=== PATIENT | female | born 1980 | race Caucasian/White ===

== ENCOUNTER 2022-01-02 14:26 | Emergency (ER) | payer OTHER, SELFPAY ==
[2022-01-02 14:36] VITALS: BP 119/83; PULSE 80; RESP 16; TEMP 36.7; O2SAT 99
--- NOTE | 2022-01-02 15:16 | ED.URI ---
HPI - URI/Sore Throat General Chief Complaint: Upper Respiratory Infection Stated Complaint: sore throat, cough, congestion, ear pain Time Seen by Provider: 01/02/22 15:16 Source: patient and RN notes reviewed Mode of arrival: ambulatory Limitations: no limitations History of Present Illness HPI Narrative: 41 y/o female presented for c/o cough, congestion, ear pain for 3 days. Cough is nonproductive. Denies sob, wheezing, n/v/d/f/c. Denies sick contacts. Currently on Chemotherapy for breast cancer, last treatment 1.5 weeks ago. Smokes 1PPD. Taking Mucinex for symptoms. MD elicited complaint: cough Related Data Home Medications Medication Instructions Recorded Confirmed Allergy (diphenhydramine) 01/02/22 Compazine 01/02/22 Decadron 01/02/22 Zofran 01/02/22 amlodipine 01/02/22 bupropion HCl 01/02/22 levothyroxine 01/02/22 omeprazole 01/02/22 Allergies Allergy/AdvReac Type Severity Reaction Status Date / Time ciprofloxacin [From Cipro] Allergy Rash Verified 01/02/22 14:33 Review of Systems Review of Systems: CONSTITUTIONAL: denies malaise, chills, sweats, fever EYES: Denies visual changes, redness, or discharge ENT: Reports rhinorrhea, congestion CARDIOVASCULAR: Denies chest pain, palpitations, edema RESPIRATORY: Reports cough, Denies dyspnea GASTROINTESTINAL: Denies abdominal pain, nausea, vomiting, diarrhea SKIN: Denies rash or itching MUSCULOSKELETAL: denies myalgia NEUROLOGIC: Denies headache Exam Narrative: GENERAL: Ill-appearing, nontoxic EYES: PERRLA, conjunctivae clear ENT: Mucous membranes moist. TMs pearly magana with normal light reflex bilaterally; no tragal tenderness. Hoarse voice, oropharynx erythematous without lesions or exudate, no drooling, no trismus, uvula midline. No tripod positioning, muffled voice, soft palate or pharyngeal wall bulging NECK: Supple. No lymphadenopathy CHEST: Clear to auscultation, breath sounds equal. HEART: Regular rate and rhythm. No murmur heard. SKIN: Warm, dry, no rash. NEURO: Alert and oriented x3. PSYCH: Normal mood and affect Course Course Emergency Course: Patient is aware of diagnosis, understands and agrees to treatment plan. Anticipatory guidance given. Patient agrees to follow-up as directed and is aware of reasons to seek care at the emergency department. Portions of this record may have been created with voice recognition software Level of Care: Express Care Visit Vital Signs Vital signs: Vital Signs Temperature 98.1 F 01/02/22 14:36 Pulse Rate 80 01/02/22 14:36 Respiratory Rate 16 01/02/22 14:36 Blood Pressure 119/83 01/02/22 14:36 Pulse Oximetry 99 01/02/22 14:36 Oxygen Delivery Room Air 01/02/22 14:36 Temperature 98.1 F 01/02/22 14:36 Pulse Rate 80 01/02/22 14:36 Respiratory Rate 16 01/02/22 14:36 Blood Pressure 119/83 01/02/22 14:36 Pulse Oximetry 99 01/02/22 14:36 Oxygen Delivery Room Air 01/02/22 14:36 reviewed MDM - URI/Sore Throat MDM Narrative Medical decision making narrative: Advised supportive measures for URI and signs/symptoms to go to the ER. Pt is appropriate for outpt treatment and f/u. Differential Diagnosis Differential diagnosis: Likely upper respiratory infection, sinusitis and viral infection Discharge Plan Discharge Clinical Impression: Upper respiratory infection Qualifiers: URI type: unspecified URI Qualified Code(s): J06.9 - Acute upper respiratory infection, unspecified Patient Disposition: Home, Self-Care Condition: Stable Instructions: Allergic Rhinitis (ED) Additional Instructions: Recommend Flonase spray and Zyrtec (or Claritin/Sherice) over the counter Cough syrup may cause drowsiness; avoid driving or take it at night time. Tylenol 1000mg every 8 hours as needed for pain/fever Steroid as directed Rest, increase fluids Follow up with your primary care provider as needed in 1-2 weeks Go to the ER for worsening symptoms or c
== END 2022-01-02 15:31 | disposition home or self-care (01) ==
PROVIDERS: Emergency Provider Nurse Practitioner Family
DX: J06.9 Acute upper respiratory infection, unspecified (principal); C50.919 Malignant neoplasm of unspecified site of unspecified female breast; Z79.899 Other long term (current) drug therapy; F17.290 Nicotine dependence, other tobacco product, uncomplicated
CPT/HCPCS: 99213; G0463

== ENCOUNTER 2023-08-07 13:15 | Outpatient (RCR) | payer OTHER, SELFPAY ==
--- NOTE | 2023-07-31 11:56 | OPREHPOC ---
Outpatient Therapy Plan of Care This is a Multidisciplinary Plan of Care that may contain components documented by all disciplines (PT, OT, and ST.) PT Goal 1 Goal Pt will be independent in HEP Pt will verbalize understanding of diagnosis and prognosis Target Visit 6 PT Problem 2 PT Problem #2 Pain PT Goal 1 Goal Pt will report greatest pain level at 3/10 or less to improve ADLs and activities Target Visit 6 PT Goal 2 Goal Pt will report resolution of pain to return to PLOF Target Visit 12 PT Problem 3 PT Problem #3 Impaired Strength PT Goal 1 Goal Pt will demo core strength of 3+/5 of the TRAM to improve lumbopelvic stability Target Visit 6 PT Goal 2 Goal Pt will demo strength of 4/5 gluteus racheal and medius jj Target Visit 12 PT Problem 4 PT Problem #4 Impaired Safety Awareness PT Goal 1 Goal Pt will demo lumbar active ROM of 50% or greater in all planes Target Visit 6 PT Goal 2 Goal Pt will demo lumbar active ROM of 75% or greater in all planes Target Visit 12
--- NOTE | 2023-07-31 11:57 | PTOPEVAL1 ---
Assessment and note entered by Linn Ulloa, PT Evaluation Information Assessment Status Evaluation Diagnosis jj low back pain without sciatica, unspec chronicity Therapy conditions sacroiliatis abnormal posture weakness stiffness lumbar spine Onset ~ 6 months Subjective Information Low back pain sometimes shoots pain in legs and in the arms. Can be jj legs, last week was doing it really bad. Was laying on back without knee support. Same time would shoot down arms. Low back has been bothering for 4-5 months maybe 6 months. Reports came on one day and at first thought it was irritated by wearing heels, but then progressed to bothering all the time. 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 Will have baseline pain then shooting pain with movements. Will notice that some days are worst and will guard pain. 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 Doesn?t lift kegs, most of the time doesn?t carry cases but usually a 12 pack at a time, and will have help with trash. Morning is worst. Medium firmness bed, new bed about 1.5 years. Activities that worsen pain: bending, turning. Improve pain: sitting on heating pad, support for lumbar, laying on LEFT side, Tylenol Also has breast cancer Had a double mastectomy 06/15/22 (1 year and 6 weeks ago), chemo and radiation (Nov 2022) is in remission. Is getting reconstructive surgery in October. Still has port. Reported Pain Level Pain Score 0: Self Report Assessment PT Clinical Summary Pt presents with subacute onset of low back pain that began between 4-6 months ago. She also reports she is in remission for breast cancer and had finished her chemo and radiation in Nov 2022 ( approx. 8 months prior to back pain initiation). 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
--- NOTE | 2023-08-16 09:45 | PCPTNOTE ---
Patient called & cancelled scheduled appointment this date due to family emergency
--- NOTE | 2023-08-19 11:30 | PTOPDC ---
Assessment and note entered by Linn Ulloa, PT Assessment Status Discharge - Pt Not Present Diagnosis jj low back pain without sciatica, unspec chronicity Onset ~ 6 months Subjective Information Low back pain sometimes shoots pain in legs and in the arms. Can be jj legs, last week was doing it really bad. Was laying on back without knee support. Same time would shoot down arms. Low back has been bothering for 4-5 months maybe 6 months. Reports came on one day and at first thought it was irritated by wearing heels, but then progressed to bothering all the time. 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 Will have baseline pain then shooting pain with movements. Will notice that some days are worst and will guard pain. 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 Doesn?t lift kegs, most of the time doesn?t carry cases but usually a 12 pack at a time, and will have help with trash. Morning is worst. Medium firmness bed, new bed about 1.5 years. Activities that worsen pain: bending, turning. Improve pain: sitting on heating pad, support for lumbar, laying on LEFT side, Tylenol Also has breast cancer Had a double mastectomy 06/15/22 (1 year and 6 weeks ago), chemo and radiation (Nov 2022) is in remission. Is getting reconstructive surgery in October. Still has port. Assessment PT Clinical Summary Pt called and stated she had too much going on for therapy. States she will call when she feels she needs to return. Pt attended 3 visits including her evaluation and has not met her goals . Thus patient is being discharged per request. Plan of Care PT Services Indicated No
== END 2023-08-20 12:49 | disposition home or self-care (01) ==
LOC: ANHHIPT 13:15
DX: M54.50 Low back pain, unspecified (principal)
CPT/HCPCS: 97014; 97110; 97162; 97530; G0283